=== PATIENT | male | born 1965 | race Caucasian/White ===

== ENCOUNTER 2019-10-26 16:08 | Emergency (ER) | payer SELFPAY ==
[~2019-10-26] VITALS: Ht 182.8 cm; Wt 88.4 kg
[2019-10-26] MEDS ORDERED: NS IV 1000 ML 1,000 ML IV STA (16:45)
[2019-10-26] MEDS ORDERED: ONDANSETRON 4 MG/2 ML (SDV) Z0FRAN IVP ONE (16:45)
--- NOTE | 2019-10-26 16:45 | ED General ---
General Stated Complaint: ETOH Exam Limitations: Intoxication (SCOTT GAGE DO) History of Present Illness Date Seen by Provider: Oct 26, 2019 Time Seen by Provider: 16:44 Initial Comments 54-year-old male brought in due to acute alcohol intoxication. Patient's history and review of systems is very limited. Patient was dropped off outside the hospital. Patient was vomiting and fluoresce these consistent with acute alcohol intoxication. Patient states he needs some Ativan but otherwise provides no other history of present illness. (SCOTT GAGE DO) Allergies and Home Medications Allergies Coded Allergies: No Allergy Information Available (Unverified , 10/26/19) Patient Home Medication List Home Medication List Reviewed: Yes (SCOTT GAGE DO) Review of Systems Review of Systems Constitutional: see HPI Respiratory: no symptoms reported Cardiovascular: no symptoms reported Gastrointestinal: vomiting Musculoskeletal: no symptoms reported Skin: no symptoms reported (SCOTT GAGE DO) Past Zrukynn-Nsefjw-Tdayny Hx Past Med/Social Hx: Reviewed Nursing Past Med/Soc Hx (SCOTT GAGE DO) Patient Social History Recent Foreign Travel: No Contact w/Someone Who Travel: No (SCOTT GAGE DO) Physical Exam Vital Signs Vital Signs - First Documented 10/26/19 16:35 Temp 36.7 Pulse 90 Resp 20 B/P (MAP) 118/76 (90) Pulse Ox 91 O2 Delivery Room Air (DELONTE EDWARDS) Vital Signs Capillary Refill : (SCOTT GAGE DO) Height, Weight, BMI Height: '" Weight: lbs. oz. kg; BMI Method: General Appearance: Other (obviously intoxicated, slurring his words, disheveled) Neck: Non Tender Respiratory: No Accessory Muscle Use, No Respiratory Distress Cardiovascular: Regular Rate, Rhythm, No Edema Gastrointestinal: Soft Extremity: Normal Range of Motion Neurologic/Psychiatric: Other (intoxicated, no other significant acute findings) (SCOTT GAGE DO) Progress/Results/Core Measures Suspected Sepsis SIRS Temperature: Pulse: Respiratory Rate: Blood Pressure / Mean: (SCOTT GAGE DO) Results/Orders Lab Results Laboratory Tests Test 10/26/19 17:11 10/26/19 22:34 10/26/19 23:45 10/27/19 03:57 Range/Units White Blood Count 3.5 L 4.3-11.0 10^3/uL Red Blood Count 4.42 4.35-5.85 10^6/uL Hemoglobin 12.6 L 13.3-17.7 G/DL Hematocrit 39 L 40-54 % Mean Corpuscular Volume 88 80-99 FL Mean Corpuscular Hemoglobin 29 25-34 PG Mean Corpuscular Hemoglobin Concent 32 32-36 G/DL Red Cell Distribution Width 15.7 H 10.0-14.5 % Platelet Count 179 130-400 10^3/uL Mean Platelet Volume 9.5 7.4-10.4 FL Neutrophils (%) (Auto) 20 L 42-75 % Lymphocytes (%) (Auto) 64 H 12-44 % Monocytes (%) (Auto) 13 H 0-12 % Eosinophils (%) (Auto) 2 0-10 % Basophils (%) (Auto) 1 0-10 % Neutrophils # (Auto) 0.7 L 1.8-7.8 X 10^3 Lymphocytes # (Auto) 2.2 1.0-4.0 X 10^3 Monocytes # (Auto) 0.4 0.0-1.0 X 10^3 Eosinophils # (Auto) 0.1 0.0-0.3 10^3/uL Basophils # (Auto) 0.0 0.0-0.1 10^3/uL Sodium Level 141 135-145 MMOL/L Potassium Level 4.5 3.6-5.0 MMOL/L Chloride Level 105 98-107 MMOL/L Carbon Dioxide Level 23 21-32 MMOL/L Anion Gap 13 5-14 MMOL/L Blood Urea Nitrogen 5 L 7-18 MG/DL Creatinine 0.93 0.60-1.30 MG/DL Estimat Glomerular Filtration Rate > 60 BUN/Creatinine Ratio 5 Glucose Level 92 70-105 MG/DL Calcium Level 8.4 L 8.5-10.1 MG/DL Corrected Calcium 8.3 L 8.5-10.1 MG/DL Total Bilirubin 0.4 0.1-1.0 MG/DL Aspartate Amino Transf (AST/SGOT) 66 H 5-34 U/L Alanine Aminotransferase (ALT/SGPT) 33 0-55 U/L Alkaline Phosphatase 95 40-136 U/L Total Protein 8.2 6.4-8.2 GM/DL Albumin 4.1 3.2-4.5 GM/DL Serum Alcohol 416 *H 319 *H 203 H <10 MG/DL Urine Color YELLOW Urine Clarity CLEAR Urine pH 5.5 5-9 Urine Specific Xenia 1.015 L 1.016-1.022 Urine Protein NEGATIVE NEGATIVE Urine Glucose (UA) NEGATIVE NEGATIVE Urine Ketones NEGATIVE NEGATIVE Urine Nitrite NEGATIVE NEGATIVE Urine Bilirubin NEGATIVE NEGATIVE Urine Urobilinogen 0.2 < = 1.0 MG/DL Urine Leukocyte Esterase NEGATIVE NEGATIVE Urine RBC (Auto) NEGATIVE NEGATIVE Urine RBC NONE /HPF Urine WBC NONE /HPF Urine Squamous Epithelial Cells RARE /HPF Urine Crystals NONE /LPF Urine Bacteria NEGATIVE /HPF Urine Casts NONE /LPF Urine Mucus NEGATIVE /LPF Urine Culture Indicated NO Urine Opiates Screen NEGATIVE NEGATIVE Urine Oxycodone Screen NEGATIVE NEGATIVE Urine Methadone Screen NEGATIVE NEGATIVE Urine Propoxyphene Screen NEGATIVE NEGATIVE Urine Barbiturates Screen POSITIVE H NEGATIVE Ur Tricyclic Antidepressants Screen NEGATIVE NEGATIVE Urine Phencyclidine Screen NEGATIVE NEGATIVE Urine Amphetamines Screen NEGATIVE NEGATIVE Urine Methamphetamines Screen NEGATIVE NEGATIVE Urine Benzodiazepines Screen POSITIVE H NEGATIVE Urine Cocaine Screen NEGATIVE NEGATIVE Urine Cannabinoids Screen NEGATIVE NEGATIVE (DELONTE EDWARDS) My Orders Orders - DELONTE EDWARDS Thiamine Tablet (Vitamin B-1 Tablet) (10/26/19 21:30) Folic Acid Tablet (Folic Acid Tablet) (10/26/19 21:30) Alcohol (10/26/19 23:55) Lactated Ringers (Lr 1000 Ml Iv Solution (10/26/19 22:45) Ed Iv/Invasive Line Start (10/27/19 00:20) Lactated Ringers (Lr 1000 Ml Iv Solution (10/27/19 00:20) Alcohol (10/27/19 04:00) Ondansetron Injection (Zofran Injectio (10/27/19 04:45) (DELONTE EDWARDS) Medications Given in ED Current Medications Medications Dose Ordered Sig/Tulio Route Start Time Stop Time Status Last Admin Dose Admin Folic Acid 1 mg ONCE ONCE PO 10/26/19 21:30 10/26/19 21:31 DC 10/26/19 23:00 1 MG Lactated Ringer's 1,000 ml @ 0 mls/hr Q0M ONCE IV 10/27/19 00:20 10/27/19 00:21 DC 10/27/19 00:23 0 MLS/HR Ondansetron HCl 4 mg ONCE ONCE IVP 10/26/19 16:45 10/26/19 16:46 DC 10/26/19 17:02 4 MG Thiamine HCl 100 mg ONCE ONCE PO 10/26/19 21:30 10/26/19 21:31 DC 10/26/19 23:00 100 MG (DELONTE EDWARDS) Vital Signs/I&O 10/27/19 00:00 Intake Total 1000 ml Balance 1000 ml (DELONTE EDWARDS) Vital Signs/I&O Capillary Refill : (SCOTT GAGE DO) Progress Note #1: Time: 21:25 Progress Note Assumed care of the patient shortly after shift change. Patient's presenting with alcohol intoxication and the plan was to sober him up with time and IV fluids and then reassess his needs. Patient's denying any suicidal or homicidal ideation. We're able to walk him to another room where he could lay down in the recliner and rest. Shortly after I arrived the patient did rip his IV catheter out of his arm and it was bandaged by nursing staff. He declined further IV placement. He is otherwise cooperative with care but refusing IV fluids. By mouth fluids were provided. He is not having any vomiting. He has not produced a urine specimen yet. Plan to reassess him around midnight given his high alcohol level and refusal to use IV fluids. We will also offer him thiamine and folic acid by mouth. Progress Note #2: Time: 22:03 Progress Note Patient was offered a dietary tray and he ate most of it. He was offered fluids to drink and he is tolerating that. No nausea or vomiting. He is back to sleep. Progress Note #3: Time: 23:51 Progress Note The patient became agitated when the nurse asked him for a urine specimen. He did however eventually provide a urine specimen. He is asked several times for some Librium or Ativan. His explained to him that we do not typically dose Ativan or Librium to keep him intoxicated but rather to prevent withdrawal symptoms. At this time he has a CIWA score of 1 point. Progress Note #4: Time: 04:06 Progress Note Patient still sleeping without concerns. Another alcohol level sent. Progress Note #5: Time: 04:36 Progress Note Patient awakens easily without concerns. He states that his friend dropped him off here thinking that this was a rehabilitation. He has had ample opportunity to sober up. He is not having any pain but he does have some mild nausea. We've ordered some ondansetron and will give him a take-home prescription for it. We provided him with contact information for the inpatient rehabilitation facility at [facility] [place] as well as [facility]. He says he is from [place] and he was coming out here to go to rehabilitation. We informed him that this is not a rehabilitation and counseled how to access that kind of care. (DELONTE EDWARDS) Departure Impression Primary Impression: Alcohol dependence Qualified Codes: F10.220 - Alcohol dependence with intoxication, uncomplicated Disposition: 01 HOME, SELF-CARE Condition: Stable Departure-Patient Inst. Decision time for Depature: 04:30 (DELONTE EDWARDS) Referrals: [facility]/MARILEE ROBBINS,LOCAL PHYSICIAN (PCP) Primary Care Physician Patient Instructions: Alcohol Abuse and Alcoholism (DC) Add. Discharge Instructions: If you want some help with your alcohol addiction and I suggest you seek help either outpatient by calling [facility] in getting an appointment or going through the inpatient program at [place], [place]. [facility] [address], [place] [address] If you have any nauseated take one tablet of Zofran place under your tongue every 6 hours as needed. Do not try to quit drinking cold turkey. You should wean slowly off the alcohol. Attempting to stop drinking suddenly after years of dependence on alcohol can result in unsafe seizures or even . Scripts Ondansetron (Ondansetron Odt) 4 Mg Tab.rapdis 4 MG PO Q6H PRN for NAUSEA/VOMITING, #12 TAB 0 Refills Prov: DELONTE EDWARDS 10/27/19 SCOTT GAGE DO Oct 26, 2019 16:44 DELONTE EDWARDS Oct 26, 2019 21:26
--- OUTSIDE RECORDS SUMMARY | 2019-10-26 17:05 | XMS REPORT | Continuity of Care Document ---
Demographics Preferred Language Unknown Marital Status Unknown Judaism Affiliation Unknown Race Unknown Ethnic Group Unknown Author Organization Unknown Address Unknown Phone Unavailable Allergies Active Description Code Type Severity Reaction Onset Reported/Identified Relationship to Patient Clinical Status Yes BENADRYL [id number] BRANDNAME N/A N/A Yes No Known Drug Allergies [id number] N/A N/A Yes No Allergy Information Available [id number] Drug Allergy Unknown N/A 020 Medications There is no data. Problems Date Dx Coded Attending Type Code Diagnosis Diagnosed By 10/21/2019 P [id number] Alc ohol abuse with intoxication, unspecified 10/21/2019 P [id number] Alc ohol abuse with intoxication, unspecified 10/21/2019 P F1020 Alco hol dependence, uncomplicated 10/23/2019 P [id number] Alc ohol abuse with intoxication, unspecified Procedures There is no data. Results Test Result Range CBC W/ AUTO DIFF (RFLX MAN DIFF IF IND) - 10/21/19 15:15 WBC 3.7 TH/CMM 4.5-10.8 RBC 4.59 ML/CMM 4.70-6.10 HGB 13.4 G/DL 14.0-18.0 HCT 41.5 % 42.0-52.0 MCV 90 FL 81-99 MCH 29.2 PG 27.0-33.0 MCHC 32.3 G/DL 31.0-36.0 RDW SD 52 FL 36-50 RDW CV 15.5 % 0.0-14.8 MPV 8.8 FL 9.3-12.5 PLT 225 TH/CMM 130-440 %NEUT 29.7 % NRG %LYMP 55.6 % NRG %MONO 11.8 % NRG %EOS 1.6 % NRG %BASO 0.5 % NRG #NEUT 1.08 TH/CMM 2.10-8.20 #LYMP 2.03 TH/CMM 0.90-5.20 #MONO 0.43 TH/CMM 0.16-1.00 #EOS 0.06 TH/CMM 0.00-0.80 #BASO 0.02 TH/CMM 0.00-0.20 CBC W/ AUTO DIFF (RFLX MAN DIFF IF IND) N/A NRG NRBC# 0.00 TH/CMM 0.00-0.00 NRBC% 0.0 /100WBC 0.0-2.0 MANUAL DIFF NOT IND NRG ALCOHOL - 10/21/19 15:15 ETHANOL 394 MG/DL NRG COMPREHENSIVE METABOLIC PANEL - 10/21/19 15:15 COMPREHENSIVE METABOLIC PANEL N/A NRG GLUCOSE 93 MG/DL 70-100 SODIUM 143 MEQ/L 135-148 POTASSIUM 3.8 MEQ/L 3.5-5.3 CHLORIDE 108 MEQ/L 96-110 CO2 23 MEQ/L 22-29 BUN 5 MG/DL 8-22 CREATININE 0.96 MG/DL 0.72-1.25 SGOT/AST 54 IU/L 10-40 SGPT/ALT 43 IU/L 8-54 ALK PHOS 131 IU/L 40-150 TOTAL PROTEIN 8.3 G/DL 5.5-8.5 ALBUMIN 4.4 G/DL 3.1-5.4 TOTAL BILI 0.4 MG/DL 0.0-1.5 CALCIUM 9.0 MG/DL 8.2-10.6 AGE 54 yrs NRG GFR NonAA 82 NRG GFR AA 99 NRG eGFR 82 mL/min/1.7 NRG eGFR AA* >60 mL/min/1.7 NRG CPK - 10/21/19 15:15 CPK 137 IU/L 0-235 RAPID DRUG SCREEN - 10/21/19 15:15 Cannabinoids (THC) NEGATIVE NEG: < 50 ng/ml Phencyclidine (PCP) NEGATIVE NEG: < 2 5 ng/ml Cocaine NEGATIVE NEG: < 300 ng/ml Methamphetamine NEGATIVE NEG: < 1000 ng /ml Opiates NEGATIVE NEG: < 300 ng/ml Amphetamine NEGATIVE NEG: < 1000 ng/ml Benzodiazepines NON-NEGATIVE NEG: < 30 0 ng/ml Tricyclic Antidepres NEGATIVE NEG: < 3 00 ng/ml Methadone NEGATIVE NEG: < 300 ng/ml Barbiturates NON-NEGATIVE NEG: < 200 n g/ml Oxycodone NEGATIVE NEG: < 100 ng/ml Propoxyphene (PPX) NEGATIVE NEG: < 300 ng/ml RAPID DRUG SCREEN N/A NRG UA ROUTINE C&S IF IND - 10/21/19 15:15 GLUCOSE Normal NL: NEGATIVE mg/dl UA ROUTINE C&S IF IND N/A NRG COLOR Colorless NL: YELLOW CLARITY Clear NL: CLEAR SPEC GRAV 1.005 NL: 1.002 - 1.022 pH 5.0 NL: 5 - 9 PROTEIN Negative NL: NEGATIVE mg/dl KETONE Negative NL: NEGATIVE mg/dl BILIRUBIN Negative NL: NEGATIVE BLOOD Negative NL: NEGATIVE NITRITE Negative NL: NEGATIVE LEUK SCREEN Negative NL: NEGATIVE Micro Indicated? NOT IND NRG CULT SET UP? NO NRG CBC W/ AUTO DIFF (RFLX MAN DIFF IF IND) - 10/23/19 17:17 WBC 2.7 TH/CMM 4.5-10.8 RBC 4.43 ML/CMM 4.70-6.10 HGB 13.1 G/DL 14.0-18.0 HCT 40.1 % 42.0-52.0 MCV 91 FL 81-99 MCH 29.6 PG 27.0-33.0 MCHC 32.7 G/DL 31.0-36.0 RDW SD 51 FL 36-50 RDW CV 15.3 % 0.0-14.8 MPV 8.7 FL 9.3-12.5 PLT 190 TH/CMM 130-440 %NEUT 29.8 % NRG %LYMP 57.6 % NRG %MONO 10.0 % NRG %EOS 1.9 % NRG %BASO 0.7 % NRG #NEUT 0.80 TH/CMM 2.10-8.20 #LYMP 1.55 TH/CMM 0.90-5.20 #MONO 0.27 TH/CMM 0.16-1.00 #EOS 0.05 TH/CMM 0.00-0.80 #BASO 0.02 TH/CMM 0.00-0.20 CBC W/ AUTO DIFF (RFLX MAN DIFF IF IND) N/A NRG NRBC# 0.00 TH/CMM 0.00-0.00 NRBC% 0.0 /100WBC 0.0-2.0 MANUAL DIFF NOT IND NRG PT/PTT - 10/23/19 17:17 Protime 10.6 SEC 9.4-12.5 INR 1.0 NRG ALCOHOL - 10/23/19 17:17 ETHANOL 355 MG/DL NRG COMPREHENSIVE METABOLIC PANEL - 10/23/19 17:17 COMPREHENSIVE METABOLIC PANEL N/A NRG GLUCOSE 107 MG/DL 70-100 SODIUM 145 MEQ/L 135-148 POTASSIUM 3.6 MEQ/L 3.5-5.3 CHLORIDE 108 MEQ/L 96-110 CO2 27 MEQ/L 22-29 BUN 5 MG/DL 8-22 CREATININE 0.94 MG/DL 0.72-1.25 SGOT/AST 45 IU/L 10-40 SGPT/ALT 32 IU/L 8-54 ALK PHOS 109 IU/L 40-150 TOTAL PROTEIN 7.6 G/DL 5.5-8.5 ALBUMIN 4.2 G/DL 3.1-5.4 TOTAL BILI 0.4 MG/DL 0.0-1.5 CALCIUM 9.0 MG/DL 8.2-10.6 AGE 54 yrs NRG GFR NonAA 84 NRG GFR AA 102 NRG eGFR 84 mL/min/1.7 NRG eGFR AA* >60 mL/min/1.7 NRG TROPONIN-I ADV - 10/23/19 17:17 TROPONIN-I AD <0.04 ng/mL 0.04-0.40 RAPID DRUG SCREEN - 10/23/19 21:49 Cannabinoids (THC) NEGATIVE NEG: < 50 ng/ml Phencyclidine (PCP) NEGATIVE NEG: < 2 5 ng/ml Cocaine NEGATIVE NEG: < 300 ng/ml Methamphetamine NEGATIVE NEG: < 1000 ng /ml Opiates NEGATIVE NEG: < 300 ng/ml Amphetamine NEGATIVE NEG: < 1000 ng/ml Benzodiazepines NON-NEGATIVE NEG: < 30 0 ng/ml Tricyclic Antidepres NEGATIVE NEG: < 3 00 ng/ml Methadone NEGATIVE NEG: < 300 ng/ml Barbiturates NEGATIVE NEG: < 200 ng/ml Oxycodone NEGATIVE NEG: < 100 ng/ml Propoxyphene (PPX) NEGATIVE NEG: < 300 ng/ml RAPID DRUG SCREEN N/A NRG Encounters ACCT No. Visit Date/Time Discharge Status Pt. Type Provider Facility Loc./Unit Complaint [id number] 10/26/2019 03:13:12 Document Registration [id number] 10/24/2019 13:45:54 Document Registration [id number] 10/23/2019 15:19:45 Document Registration [id number] 10/23/2019 15:04:11 Document Registration [id number] 10/22/2019 15:28:05 Document Registration [id number] 10/22/2019 15:21:43 Document Registration [id number] 10/22/2019 08:25:51 Document Registration [id number] 10/21/2019 16:56:06 Document Registration [id number] 10/21/2019 15:04:00 Document Registration [id number] 10/26/2019 16:09:[address] Emergency [facility] PARDO [facility] ER ETOH
[2019-10-26 17:25] LABS: BASOPHILS % (AUTO) 1 % (0-10); EOSINOPHILS # (AUTO) 0.1 10^3/uL (0.0-0.3); EOSINOPHILS % (AUTO) 2 % (0-10); HEMATOCRIT 39 % (40-54); HEMOGLOBIN 12.6 G/DL (13.3-17.7); LYMPHOCYTES # (AUTO) 2.2 X 10^3 (1.0-4.0); LYMPHOCYTES % (AUTO) 64 % (12-44); MEAN CORPUSCULAR HEMOGLOBIN 29 PG (25-34); MEAN CORPUSCULAR HGB CONC 32 G/DL (32-36); MEAN CORPUSCULAR VOLUME 88 FL (80-99); MEAN PLATELET VOLUME 9.5 FL (7.4-10.4); MONOCYTES # (AUTO) 0.4 X 10^3 (0.0-1.0); MONOCYTES % (AUTO) 13 % (0-12); NEUTROPHILS # (AUTO) 0.7 X 10^3 (1.8-7.8); NEUTROPHILS % (AUTO) 20 % (42-75); PLATELET COUNT 179 10^3/uL (130-400); RED CELL DISTRIBUTION WIDTH 15.7 % (10.0-14.5); WHITE BLOOD COUNT 3.5 10^3/uL (4.3-11.0)
[2019-10-26 17:41] LABS: ALANINE AMINOTRANSFERASE 33 U/L (0-55); ALBUMIN 4.1 GM/DL (3.2-4.5); ALKALINE PHOSPHATASE 95 U/L (40-136); BILIRUBIN,TOTAL 0.4 MG/DL (0.1-1.0); BUN/CREATININE RATIO 5; CALCIUM 8.4 MG/DL (8.5-10.1); CARBON DIOXIDE 23 MMOL/L (21-32); CHLORIDE 105 MMOL/L (98-107); CREATININE SERUM 0.93 MG/DL (0.60-1.30); GFR ESTIMATED > 60; GLUCOSE 92 MG/DL (70-105); POTASSIUM 4.5 MMOL/L (3.6-5.0); SODIUM 141 MMOL/L (135-145); TOTAL PROTEIN 8.2 GM/DL (6.4-8.2)
--- NOTE | 2019-10-26 17:42 | NUR ---
This nurse was sitting at the nurses station when the door in room 7 suddenly slammed very hard. This nurse opened the door and pt was standing right inside door with sheet wrapped around feet and blood dripping from where IV was pulled from arm. IV fluids were all over the floor. Pt speaking incoherently and could barely stand. Pt's arm wrapped, and pt was placed back in bed. Pt given warm blankets and meal tray ordered at this time. Pt refused to have right side bed rail up.
--- NOTE | 2019-10-26 18:15 | NUR ---
Meal tray taken to pt's room at this time. Pt sleeping. Tray left in room. Will continue to monitor.
--- NOTE | 2019-10-26 19:02 | NUR ---
Report given to REE Weiss.
[2019-10-26] MEDS ORDERED: THIAMINE 100 MG (VITAMIN B-1) TAB PO ONE (21:30)
[2019-10-26] MEDS ORDERED: FOLIC ACID 1 MG TAB PO ONE (21:30)
[2019-10-26] MEDS ORDERED: LACTATED RINGERS 1,000 ML IV SCH (22:45)
[2019-10-26 23:54] LABS: BILIRUBIN,URINE NEGATIVE (NEGATIVE); CLARITY,URINE CLEAR; COLOR,URINE YELLOW; GLUCOSE, URINE (UA) NEGATIVE (NEGATIVE); KETONES,URINE NEGATIVE (NEGATIVE); LEUKOCYTE ESTERASE ,URINE NEGATIVE (NEGATIVE); NITRITE,URINE NEGATIVE (NEGATIVE); PH,URINE 5.5 (5-9); PROTEIN,URINE NEGATIVE (NEGATIVE)
[2019-10-27] LABS: BACTERIA,URINE NEGATIVE /HPF; SQUAMOUS EPITHELIAL CELL,UR RARE /HPF
[2019-10-27 00:05] LABS: AMPHETAMINE SCREEN, URINE NEGATIVE (NEGATIVE); BARBITURATE SCREEN URINE POSITIVE (NEGATIVE); BENZODIAZEPINES SCREEN URINE POSITIVE (NEGATIVE); CANNABINOID SCREEN, URINE NEGATIVE (NEGATIVE); COCAINE SCREEN URINE NEGATIVE (NEGATIVE); METHADONE STAT NEGATIVE (NEGATIVE); METHAMPHETAMINE SCREEN URINE S NEGATIVE (NEGATIVE); OPIATE SCREEN URINE NEGATIVE (NEGATIVE); OXYCODONE STAT NEGATIVE (NEGATIVE); PROPOXYPHENE STAT NEGATIVE (NEGATIVE); TRICYCLIC ANTIDEPRESSANTS SCRE NEGATIVE (NEGATIVE)
[2019-10-27] MEDS ORDERED: LACTATED RINGERS 1,000 ML IV ONE (00:20)
[2019-10-27] MEDS ORDERED: ONDA4TAB11 PO (04:42)
[2019-10-27 04:43] VITALS: BP 122/81
[2019-10-27] MEDS ORDERED: ONDANSETRON 4 MG/2 ML (SDV) Z0FRAN IVP ONE (04:45)
== END 2019-10-27 04:53 | disposition home or self-care (01) ==
LOC: ER 16:09
DX: F10.229 Alcohol dependence with intoxication, unspecified (principal); Y90.7 Blood alcohol level of 200-239 mg/100 ml
CPT/HCPCS: 80053; 80306; 81000; 85025; 99284; G0480 ×2; 36415; 80320

== ENCOUNTER 2019-10-27 11:29 | Emergency (ER) | payer SELFPAY ==
[~2019-10-27] VITALS: Ht 185.4 cm; Wt 90.9 kg
[~2019-10-27 11:29] MED LIST: ONDA4TAB11 PO
[2019-10-27 11:31] VITALS: BP 140/100
--- NOTE | 2019-10-27 11:38 | ED General ---
General Stated Complaint: ANXIETY Source of Information: Patient Exam Limitations: No Limitations History of Present Illness Date Seen by Provider: Oct 27, 2019 Time Seen by Provider: 11:34 Initial Comments To ER by EMS with reports of needing detox. He presented to a local [employer] shop. Carolyn Esdras from [facility] called paramedics on scene and advised that she could come pick the patient up to start outpatient detox. Patient refused as he stated that he needs inpatient. Timing/Duration: 1-2 Days Severity: Moderate Associated Systoms: Denies Symptoms Allergies and Home Medications Allergies Coded Allergies: No Allergy Information Available (Unverified , 10/26/19) Home Medications Ondansetron 4 Mg Tab.rapdis, 4 MG PO Q6H PRN for NAUSEA/VOMITING Prescribed by: DELONTE EDWARDS on 10/27/19 0442 Patient Home Medication List Home Medication List Reviewed: Yes Review of Systems Review of Systems Constitutional: see HPI EENTM: see HPI Respiratory: no symptoms reported Cardiovascular: no symptoms reported Genitourinary: no symptoms reported Musculoskeletal: no symptoms reported Skin: no symptoms reported Psychiatric/Neurological: No Symptoms Reported Hematologic/Lymphatic: No Symptoms Reported Immunological/Allergic: no symptoms reported Past Pdzlire-Iyeynj-Tremxx Hx Patient Social History 2nd Hand Smoke Exposure: No Physical Exam Vital Signs Capillary Refill : Height, Weight, BMI Height: '" Weight: lbs. oz. kg; 26.00 BMI Method: General Appearance: No Apparent Distress, WD/WN, Other (disheveled, alert, conversive. States he needs detox inpatient because he is homeless. Discussed with him that I am inpatient detox facility is not a homeless skilled nursing. Advised that we could check labs and evaluate his condition and he states he would just leave. He left before exam could be completed) Eyes: Bilateral Eye Normal Inspection, Bilateral Eye PERRL Respiratory: No Accessory Muscle Use, No Respiratory Distress Neurologic/Psychiatric: Alert, Oriented x3 Skin: Normal Color, Warm/Dry, Other (disheveled) Progress/Results/Core Measures Suspected Sepsis SIRS Temperature: Pulse: Respiratory Rate: Blood Pressure / Mean: Results/Orders Vital Signs/I&O Capillary Refill : Departure Impression Primary Impression: Left against medical advice Disposition: 07 AGAINST MEDICAL ADVICE Condition: Against Medical Advice Departure-Patient Inst. Decision time for Depature: 11:37 Referrals: NO,LOCAL PHYSICIAN (PCP/Family) Primary Care Physician Patient Instructions: Leaving Against Medical Advice DEMETRA HUITRON APRN Oct 27, 2019 11:37
--- NOTE | 2019-10-27 11:43 | NUR ---
UNABLE TO DO PMH LEFT AMA
--- OUTSIDE RECORDS SUMMARY | 2019-10-27 11:44 | XMS REPORT | Continuity of Care Document ---
Demographics Preferred Language Unknown Marital Status Unknown Holiness Affiliation Unknown Race Unknown Ethnic Group Unknown Author Organization Unknown Address Unknown Phone Unavailable Allergies Active Description Code Type Severity Reaction Onset Reported/Identified Relationship to Patient Clinical Status Yes BENADRYL [id number] BRANDNAME N/A N/A Yes No Known Drug Allergies [id number] N/A N/A Yes No Allergy Information Available [id number] Drug Allergy Unknown N/A 020 Medications There is no data. Problems Date Dx Coded Attending Type Code Diagnosis Diagnosed By 10/21/2019 P [id number] Alc ohol abuse with intoxication, unspecified 10/21/2019 P [id number] Alc ohol abuse with intoxication, unspecified 10/21/2019 P F1020 Alco hol dependence, uncomplicated 10/23/2019 P [id number] Alc ohol abuse with intoxication, unspecified Procedures [...] 300 ng/ml RAPID DRUG SCREEN N/A NRG Comprehensive metabolic panel - 10/26/19 17:11 Serum or plasma sodium measurement (moles/volume) 141 mmol/L 135-145 Serum or plasma potassium measurement (moles/volume) 4.5 mmol/L 3.6-5.0 Serum or plasma chloride measurement (moles/volume) 105 mmol/L 98-107 Carbon dioxide 23 mmol/L 21-32 Serum or plasma anion gap determination (moles/volume) 13 mmol/L 5-14 Serum or plasma urea nitrogen measurement (mass/volume ) 5 mg/dL 7-18 Serum or plasma creatinine measurement (mass/volume) 0.93 mg/dL 0.60-1.30 Serum or plasma urea nitrogen/creatinine mass ratio 5 NRG Serum or plasma creatinine measurement w ith calculation of estimated glomerular filtration rate > NRG Serum or plasma glucose measurement (mass/volume) 92 mg/dL 70-105 Serum or plasma calcium measurement (mass/volume) 8.4 mg/dL 8.5-10.1 Serum or plasma total bilirubin measurement (mass/volu me) 0.4 mg/dL 0.1-1.0 Serum or plasma alkaline phosphatase thelma surement (enzymatic activity/volume) 95 U/L 40-136 Serum or plasma aspartate aminotransfera se measurement (enzymatic activity/volume) 66 U/L 5-34 Serum or plasma alanine aminotransferase measurement (enzymatic activity/volume) 33 U/L 0-55 Serum or plasma protein measurement (mass/volume) 8.2 g/dL 6.4-8.2 Serum or plasma albumin measurement (mass/volume) 4.1 g/dL 3.2-4.5 CALCIUM CORRECTED 8.3 mg/dL 8.5-10.1 Complete blood count (CBC) with automate d white blood cell (WBC) differential - 10/26/19 17:11 Blood leukocytes automated count (number/volume) 3.5 10*3/uL 4.3-11.0 Blood erythrocytes automated count (number/volume) 4.42 10*6/uL 4.35-5.85 Venous blood hemoglobin measurement (mass/volume) 12.6 g/dL 13.3-17.7 Blood hematocrit (volume fraction) 39 % 40-54 Automated erythrocyte mean corpuscular volume 88 [ foz_us] 80-99 Automated erythrocyte mean corpuscular h emoglobin (mass per erythrocyte) 29 pg 25-34 Automated erythrocyte mean corpuscular h emoglobin concentration measurement (mass/volume) 32 g/dL 32-36 Automated erythrocyte distribution width ratio 15. 7 % 10.0- 14.5 Automated blood platelet count (count/volume) 179 10*3/uL 130-400 Automated blood platelet mean volume measurement 9.5 [foz_us] 7.4-10.4 Automated blood neutrophils/100 leukocytes 20 % 42-75 Automated blood lymphocytes/100 leukocytes 64 % 12-44 Blood monocytes/100 leukocytes 13 % 0-12 Automated blood eosinophils/100 leukocytes 2 % 0-10 Automated blood basophils/100 leukocytes 1 % 0-10 Blood neutrophils automated count (number/volume) 0.7 10*3 1.8-7.8 Blood lymphocytes automated count (number/volume) 2.2 10*3 1.0-4.0 Blood monocytes automated count (number/volume) 0. 4 10*3 0.0-1.0 Automated eosinophil count 0.1 10*3/uL 0 .0-0.3 Automated blood basophil count (count/volume) 0.0 10*3/uL 0.0-0.1 Serum or plasma ethanol measurement (mas s/volume) - 10/26/19 17:11 Serum or plasma ethanol measurement (mass/volume) 416 mg/dL <10 Serum or plasma ethanol measurement (mas s/volume) - 10/26/19 22:34 Serum or plasma ethanol measurement (mass/volume) 319 mg/dL <10 Complete urinalysis with reflex to cultu re - 10/26/19 23:45 Urine color determination YELLOW NRG Urine clarity determination CLEAR NR G Urine pH measurement by test strip 5.5 5-9 Specific gravity of urine by test strip 1.015 1.016-1.022 Urine protein assay by test strip, semi-quantitative NEGATIVE NEGATIVE Urine glucose detection by automated test strip NE GATIVE NEGATIVE Erythrocytes detection in urine sediment by light micr oscopy NEGATIVE NEGATIVE Urine ketones detection by automated test strip NE GATIVE NEGATIVE Urine nitrite detection by test strip NEGATIVE NEGATIVE Urine total bilirubin detection by test strip NEGA TIVE NEGATIVE Urine urobilinogen measurement by automated test strip (mass/volume) 0.2 mg/dL < = 1.0 Urine leukocyte esterase detection by dipstick NEG ATIVE NEGATIVE Automated urine sediment erythrocyte cou nt by microscopy (number/high power field) NONE NRG Automated urine sediment leukocyte count by microscopy (number/high power field) NONE NRG Bacteria detection in urine sediment by light microsco py NEGATIVE NRG Squamous epithelial cells detection in u rine sediment by light microscopy RARE NRG Crystals detection in urine sediment by light microsco py NONE NRG Casts detection in urine sediment by light microscopy NONE NRG Mucus detection in urine sediment by light microscopy NEGATIVE NRG Complete urinalysis with reflex to culture NO NRG Urine drug screening test - 10/26/19 23: 45 Urine phencyclidine detection by screening method NEGATIVE NEGATIVE Urine benzodiazepines detection by screening method POSITIVE NEGATIVE Urine cocaine detection NEGATIVE NEGATI VE Urine amphetamines detection by screening method N EGATIVE NEGATIVE Urine methamphetamine detection by screening method NEGATIVE NEGATIVE Urine cannabinoids detection by screening method N EGATIVE NEGATIVE Urine opiates detection by screening method NEGATI VE NEGATIVE Urine barbiturates detection POSITIVE N EGATIVE Screening urine tricyclic antidepressants detection NEGATIVE NEGATIVE Urine methadone detection by screening method NEGA TIVE NEGATIVE Urine oxycodone detection NEGATIVE NEGA TIVE Urine propoxyphene detection NEGATIVE N EGATIVE Serum or plasma ethanol measurement (mas s/volume) - 10/27/19 03:57 Serum or plasma ethanol measurement (mass/volume) 203 mg/dL <10 Encounters ACCT No. Visit Date/Time Discharge Status Pt. Type Provider Facility Loc./Unit Complaint 10/26/2019 03:13:12 Document Registration [id number] 10/24/2019 13:45:54 Document Registration [id number] 10/23/2019 15:19:45 Document Registration [id number] 10/23/2019 15:04:11 Document Registration [id number] 10/22/2019 15:28:05 Document Registration [id number] 10/22/2019 15:21:43 Document Registration [id number] 10/22/2019 08:25:51 Document Registration [id number] 10/21/2019 16:56:06 Document Registration [id number] 10/21/2019 15:04:00 Document Registration [id number] 10/26/2019 16:09:[address] Emergency GRACE MICHELLE, DELONTE Millan [facility] ER ETOH
== END 2019-10-27 11:31 | disposition left against medical advice (07) ==
LOC: EDUNIT# 11:29 → ER 11:30
DX: F41.9 Anxiety disorder, unspecified (principal)
CPT/HCPCS: 99283

== ENCOUNTER 2019-10-27 15:05 | Emergency (ER) | payer SELFPAY ==
[~2019-10-27] VITALS: Ht 182.8 cm; Wt 86.3 kg
[2019-10-27 16:10] VITALS: BP 131/91
[2019-10-27] MEDS ORDERED: LIDOCAINE 2% VISCOUS 15 ML UDC PO ONE (16:15)
[2019-10-27] MEDS ORDERED: ANTACID SUSP 30 ML UDC (MYLANTA) PO ONE (16:15)
--- NOTE | 2019-10-27 16:15 | ED GI ---
General Stated Complaint: ALCOHOL ABUSE Source of Information: Patient Exam Limitations: No Limitations History of Present Illness Date Seen by Provider: Oct 27, 2019 Time Seen by Provider: 16:14 Initial Comments To ER by ems from [facility] with c/o abdominal pain. Timing/Duration: 1-2 Days Severity/Quality: Moderate Radiation: No Radiation Activities at Onset: None Associated Symptoms: Denies Symptoms Allergies and Home Medications Allergies Coded Allergies: No Allergy Information Available (Unverified , 10/26/19) Home Medications Ondansetron 4 Mg Tab.rapdis, 4 MG PO Q6H PRN for NAUSEA/VOMITING Prescribed by: DELONTE EDWARDS on 10/27/19 0442 Patient Home Medication List Home Medication List Reviewed: Yes Review of Systems Review of Systems Constitutional: see HPI EENTM: No Symptoms Reported Respiratory: No Symptoms Reported Cardiovascular: No Symptoms Reported Gastrointestinal: See HPI, Abdominal Pain Genitourinary: No Symptoms Reported Musculoskeletal: no symptoms reported Skin: no symptoms reported Endocrine: No Symptoms Reported Hematologic/Lymphatic: No Symptoms Reported Past Zjxuzzp-Rrmack-Ntzxfi Hx Patient Social History 2nd Hand Smoke Exposure: No Recent Foreign Travel: No Contact w/Someone Who Travel: No Physical Exam Vital Signs Capillary Refill : Height/Weight/BMI Height: '" Weight: lbs. oz. kg; 26.00 BMI Method: General Appearance: WD/WN, other (disheveled. ) Neck: non-tender, full range of motion Respiratory: lungs clear, normal breath sounds, no respiratory distress, no accessory muscle use Cardiovascular: regular rate, rhythm, no murmur Gastrointestinal: normal bowel sounds, soft Extremities: normal range of motion, non-tender Neurologic/Psychiatric: alert, normal mood/affect, oriented x 3 Skin: normal color, warm/dry Progress/Results/Core Measures Results/Orders My Orders Orders - DEMETRA HUITRON APRN Alcohol (10/27/19 16:13) Partial Thromboplastin Time (10/27/19 16:13) Protime With Inr (10/27/19 16:13) Cbc With Automated Diff (10/27/19 16:13) Comprehensive Metabolic Panel (10/27/19 16:13) Lipase (10/27/19 16:13) Antacid Suspension (Mylanta Suspension (10/27/19 16:15) Lidocaine 2% Viscous 15 Ml (Xylocaine Vi (10/27/19 16:15) Departure Communication (Admissions) 1633-now refuses blood draw, wants to leave. Impression Primary Impression: Left against medical advice Disposition: 07 AGAINST MEDICAL ADVICE Condition: Against Medical Advice Departure-Patient Inst. Decision time for Depature: 16:19 Referrals: NO,LOCAL PHYSICIAN (PCP/Family) Primary Care Physician DEMETRA HUITRON APRN Oct 27, 2019 16:15
--- OUTSIDE RECORDS SUMMARY | 2019-10-27 17:04 | XMS REPORT | Continuity of Care Document ---
Demographics Preferred Language Unknown Marital Status Unknown Episcopal Affiliation Unknown Race Unknown Ethnic Group Unknown Author Organization Unknown Address Unknown Phone Unavailable Allergies Active Description Code Type Severity Reaction Onset Reported/Identified Relationship to Patient Clinical Status Yes BENADRYL [id number] BRANDNAME N/A N/A Yes No Known Drug Allergies [id number] N/A N/A Yes No Allergy Information Available [id number] Drug Allergy Unknown N/A 020 Medications There is no data. Problems Date Dx Coded Attending Type Code Diagnosis Diagnosed By 10/21/2019 P [id number] Alc ohol abuse with intoxication, unspecified 10/21/2019 P [id number] Alc ohol abuse with intoxication, unspecified 10/21/2019 P F1020 Alco hol dependence, uncomplicated 10/23/2019 P [id number] Alc ohol abuse with intoxication, unspecified Procedures [...] Facility Loc./Unit Complaint 10/26/2019 03:13:12 Document Registration [id number] 10/24/2019 13:45:54 Document Registration [id number] 10/23/2019 15:19:45 Document Registration [id number] 10/23/2019 15:04:11 Document Registration [id number] 10/22/2019 15:28:05 Document Registration [id number] 10/22/2019 15:21:43 Document Registration [id number] 10/22/2019 08:25:51 Document Registration [id number] 10/21/2019 16:56:06 Document Registration [id number] 10/21/2019 15:04:00 Document Registration [id number] 10/26/2019 16:09:[address] Emergency GRACE MICHELLE, DELONTE Millan [facility] ER ETOH
== END 2019-10-27 16:30 | disposition left against medical advice (07) ==
LOC: EDUNIT# 15:05 → ER 15:06
DX: F10.10 Alcohol abuse, uncomplicated (principal); R10.9 Unspecified abdominal pain
CPT/HCPCS: 99283